=== PATIENT | male | born 1980 | race Caucasian/White ===

== ENCOUNTER 2019-12-05 10:14 | Emergency (ER) | payer BC, SELFPAY ==
--- NOTE | ~2019-12-05 | XR_ITS ---
EXAMINATION: XR chest 2V DATE: 12/05/2019 10:49 INDICATION: 8 days of cough TECHNIQUE: PA and lateral views of the chest were obtained. COMPARISON: Chest radiograph dated 10/02/2015 FINDINGS: The lungs remain clear with no focal airspace opacities, pulmonary edema, pleural effusion or pneumot horax. The cardiomediastinal silhouette is normal. Visualized bones and soft tissues are unremarkable . IMPRESSION: 1. Normal chest radiograph. Reviewed, dictated and finalized at location A. IMPRESSION: 1. Normal chest radiograph.
[2019-12-05 10:26] VITALS: BP 183/127; PULSE 91; RESP 20; TEMP 37.1; O2SAT 97
--- NOTE | 2019-12-05 10:26 | ED.GENADULT ---
HPI - General Adult General Chief complaint: Upper Respiratory Infection Stated complaint: Severe cough/cold over week Time Seen by Provider: 12/05/19 10:26 Source: patient Mode of arrival: ambulatory Limitations: no limitations History of Present Illness HPI narrative: 38-year-old male patient presents to the [facility] with complaints of a cough and little bit of shortness of breath. Patient states that they had an exposure at work about 2 weeks ago. Patient states that he got tested about 2 weeks ago but at that time had no symptoms and came up negative for COVID-19. Patient states he started having symptoms last Friday and states that he was tested on Friday, 2 days after symptoms. Patient states that he tested negative again. Patient states that he never ran a fever but continues to have a cough with bouts of shortness of breath when coughing at times. Denies any sore throat. Patient states he does have a little fullness to the bilateral ears. Denies any chest pain at this time. Denies any abdominal pain, nausea, vomiting or diarrhea. Patient is a smoker. Related Data Home Medications Medication Instructions Recorded Confirmed irbesartan 150 mg PO DAILY 12/05/19 12/05/19 testosterone cypionate 200 mg IM [id number] 12/05/19 12/05/19 venlafaxine 24 mg PO DAILY 12/05/19 12/05/19 Allergies Allergy/AdvReac Type Severity Reaction Status Date / Time No Known Allergies Allergy Unverified 10/02/15 09:28 Review of Systems Review of Systems: Narrative: CONSTITUTIONAL: Denies fever, chills, or sweats. EYES: Denies visual changes, redness, or discharge. ENT: Denies rhinorrhea, congestion, sore throat, or otalgia. CARDIOVASCULAR: Denies chest pain, palpitations, or edema. RESPIRATORY: Positive cough with dyspnea. GASTROINTESTINAL: Denies abdominal pain, nausea, vomiting, or diarrhea. GENITOURINARY: Denies dysuria or hematuria. SKIN: Denies rash or itching. MUSCULOSKELETAL: Denies back pain, joint pain, or myalgia. NEUROLOGIC: Denies headache, numbness, or weakness. PSYCHIATRIC: Denies anxiety or depression. [facility] Social History Social History Smoking status: Current every day smoker Alcohol intake: current Gender identity (if verbalized by the patient): Male Comments At the time of my signature I agree with nursing past medical history, surgical, social, and family history. There is no relevant family history pertinent to the presenting complaint. Exam Narrative: Exam Narrative: GENERAL: Well-appearing, well-nourished, and in no acute distress. HEAD: Normocephalic, atraumatic. EYES: PERRLA and EOMI. ENT: Nares clear, no rhinorrhea or epistaxis. Mucous membranes moist. Posterior pharynx with slight erythema and 1+ tonsil enlargement. Bilateral TMs are clear no erythema or foreign bodies in the canal. NECK: Supple. No lymphadenopathy CHEST: Clear to auscultation. Patient does have an active cough noted at the time of exam. Patient is able to talk in clear complete sentences when he is not coughing. HEART: Regular rate and rhythm. No murmur heard. Normal peripheral pulses. ABDOMEN: Soft, nontender, nondistended, normal active bowel sounds. EXTREMITIES: Normal range of motion. No edema. SKIN: Warm, dry, no rash. NEURO: No focal deficits. Alert and oriented x3. Course Vital Signs Vital signs: Vital signs reviewed. Medical Decision Making Differential Diagnosis Differential Diagnosis: Differential diagnosis: Allergic rhinitis, chronic sinusitis, tonsillitis, acute sinusitis, infectious mononucleosis, seasonal influenza, pertussis, diphtheria, meningococcal disease, viral syndrome, viral bronchitis, RSV. Discussed with patient that his strep was negative as well as his flu. Discussed with him that his x-ray is negative for any obvious pneumonia. Discussed with him that this could possibly be a bronchitis since he is a smoker he is more prone to bronchitis. D
== END 2019-12-05 11:25 | disposition home or self-care (01) ==
PROVIDERS: Emergency Provider Nurse Practitioner Family; PCP Emergency Medicine
DX: J06.9 Acute upper respiratory infection, unspecified (principal); J20.9 Acute bronchitis, unspecified; Z20.828 Contact with and (suspected) exposure to other viral communicable diseases; F17.200 Nicotine dependence, unspecified, uncomplicated
CPT/HCPCS: 71046; 87081; 87804; 87880; 99213; G0463

== ENCOUNTER 2020-01-21 06:58 | Outpatient (NON) | payer BC, SELFPAY ==
[2020-01-21 18:25] LABS: SARS-CoV-2 RNA PCR Negative
== END 2020-01-21 06:59 ==
PROVIDERS: PCP Emergency Medicine; Visit Provider Emergency Medicine
DX: Z20.828 Contact with and (suspected) exposure to other viral communicable diseases (principal)
CPT/HCPCS: 87635; C9803; U0003

== ENCOUNTER 2020-04-27 08:30 | Emergency (ER) | payer BC, SELFPAY ==
--- NOTE | ~2020-04-27 | XR_ITS ---
EXAMINATION: XR foot LT min 3V EXAM DATE: 04/27/2020 08:55 INDICATION: Pain mid Lt foot; no injury; hx of flat feet. TECHNIQUE: Left foot dorsoplantar, lateral and oblique projections obtained and reviewed. There is n o prior study for comparison. FINDINGS: Left metatarsal bones unremarkable. There is 1st interphalangeal joint osteoarthritis, c ould be primary or posttraumatic. Small distal tibial bone island. No evidence of metatarsal stress f racture. There are no acute fractures or dislocations identified. There is no subcutaneous gas. The soft tissue is unremarkable. There are no radiopaque foreign bodies. There are no bony erosions i dentified. 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 Reviewed, dictated and finalized at location A. [employer]PER
[2020-04-27 08:37] VITALS: BP 154/101; PULSE 94; RESP 16; TEMP 36.2; O2SAT 98
--- NOTE | 2020-04-27 09:11 | ED.LOWEXIN ---
HPI - Extremity Injury (Lower) General Chief Complaint: Extremity Injury, Lower Stated Complaint: L FOOT PAIN Time Seen by Provider: 04/27/20 09:00 Source: patient Mode of arrival: ambulatory Limitations: no limitations History of Present Illness HPI Narrative: Raymundo Whitmore is a 39 yo male with a PMH of HTN, depression, low testosterone, who comes to [facility] complaining of left-sided pain in the arch of foot that started last Friday. Pain with movement of toes; because of the trauma, no obvious swelling or redness, wearing slippers States increased pain when walking stairs is in both house and the job Related Data Home Medications Medication Instructions Recorded Confirmed testosterone cypionate 200 mg IM [id number] 12/05/19 04/27/20 venlafaxine 25 mg PO DAILY 12/05/19 04/27/20 icosapent ethyl [Vascepa] 1 g PO DAILY 04/27/20 04/27/20 irbesartan 300 mg PO DAILY 04/27/20 04/27/20 Allergies Allergy/AdvReac Type Severity Reaction Status Date / Time No Known Allergies Allergy Unverified 04/27/20 08:37 Review of Systems Review of Systems: Narrative: CONSTITUTIONAL: Denies fever, chills, sweats. EYES: Denies visual changes, redness, discharge. ENT: Denies rhinorrhea, congestion, sore throat, otalgia. CARDIOVASCULAR: Denies chest pain, palpitations, edema. RESPIRATORY: Denies dyspnea, wheezing, cough GASTROINTESTINAL: Denies abdominal pain, nausea, vomiting, diarrhea. GENITOURINARY: Denies dysuria, hematuria, abnormal discharge SKIN: Denies rash or itching. NEUROLOGIC: Denies numbness, or focal weakness. PSYCHIATRIC: Denies anxiety or depression. Left foot pain in the arch of foot PMFSH Past Medical History Medical History Depression Hypertension Low testosterone Family History Family History Other No acute medical problems Social History Social History Smoking status: Current every day smoker Alcohol intake: current Gender identity (if verbalized by the patient): Male Comments At time of signature, I agree with nursing past medical, surgical, social and family history. There is no relevant family history pertinent to the presenting complaint. Exam Narrative: Exam Narrative: GENERAL: This is a well-nourished, well-developed patient, in mild distress. HEAD: normocephalic, atraumatic. EYES: PERRL. Sclera clear/white. Vision is grossly intact. EARS: External ears normal, auditory canals clear and without drainage, TMs normal without perforation. Hearing grossly intact. NOSE: External nose normal without nasal discharge, nares without redness, no rhinorrhea. THROAT: Mucous membranes moist, posterior pharynx NECK: Neck supple, non-tender CARDIOVASCULAR: Regular rate and rhythm without murmurs, gallops, or rubs. RESPIRATORY: Clear to auscultation. Breath sounds equal bilaterally. No wheezes, rales, or rhonchi. GASTROINTESTINAL: Abdomen soft, non-tender, SKIN: warm, intact with no suspicious lesions or rash, good texture and turgor. NEURO: awake, alert, and oriented to person, place and time. There were no obvious focal neurologic abnormalities. Steady gait EXTREMITIES: Normal range of motion. Pain in arch of left foot painful to move toes are to flex foot; no obvious redness or swelling; with pain and pressure on plantar tendon BACK: Nontender without deformity Course Course Emergency Course: Patient comes with left foot pain X-ray foot shows only first interphalangeal osteoarthritis but no fracture or subluxation Started on Medrol Dosepak and given stretching exercises, wear supportive shoes-unable to give NSAID as patient's blood pressure is elevated even on blood pressure medication Follow-up with insurance rater if not improved Vital Signs Vital signs: Vital Signs Temperature 97.1 F L 04/27/20 08:37 Pulse Rate 94 04/27/20 08:37
== END 2020-04-27 09:42 | disposition home or self-care (01) ==
PROVIDERS: Emergency Provider Nurse Practitioner; PCP Emergency Medicine
DX: M72.2 Plantar fascial fibromatosis (principal); F17.200 Nicotine dependence, unspecified, uncomplicated; F32.9 Major depressive disorder, single episode, unspecified; I10 Essential (primary) hypertension
CPT/HCPCS: 73630; 99213; G0463

== ENCOUNTER 2020-05-15 08:03 | Emergency (ER) | payer BC, SELFPAY ==
[2020-05-15 08:08] VITALS: BP 160/111; PULSE 96; RESP 16; TEMP 36.6; O2SAT 99
--- NOTE | 2020-05-15 08:08 | ED.LOWEXIN ---
HPI - Extremity Injury (Lower) General Chief Complaint: Extremity Injury, Lower Stated Complaint: lt foot pain Time Seen by Provider: 05/15/20 08:08 Source: patient and RN notes reviewed Mode of arrival: ambulatory Limitations: no limitations History of Present Illness HPI Narrative: 39 yo male presents to the [facility] with continued left foot pain. Was seen 04/27 for the same. No new trauma. States that he was walking around barefoot yesterday. After couple hours his foot started hurting. Patient states that when he was seen, was prescribed steroid, pain became better and he did not think he needed follow-up. Reports that after he started feeling better he stopped doing the exercises. Has purchased insoles from the store. Reports insoles did help a little bit. Reports that he is trying to get an appointment with both primary and with podiatry. Related Data Home Medications Medication Instructions Recorded Confirmed irbesartan 300 mg PO DAILY 04/27/20 05/15/20 icosapent ethyl [Vascepa] 1 g PO DAILY 05/15/20 05/15/20 testosterone cypionate 200 mg IM [id number] 05/15/20 05/15/20 venlafaxine 25 mg PO DAILY 05/15/20 05/15/20 Allergies Allergy/AdvReac Type Severity Reaction Status Date / Time No Known Allergies Allergy Unverified 05/15/20 08:13 Review of Systems Review of Systems: Narrative: CONSTITUTIONAL: Denies fever, chills, or sweats. EYES: Denies visual changes, redness, or discharge. CARDIOVASCULAR: Denies chest pain, palpitations, or edema. RESPIRATORY: Denies cough or dyspnea. GASTROINTESTINAL: Denies abdominal pain, nausea, vomiting, or diarrhea. GENITOURINARY: Denies dysuria or hematuria. SKIN: Denies rash or itching. MUSCULOSKELETAL: Denies back pain, joint pain, or myalgia. Arch and top of left foot, worse in the morning. NEUROLOGIC: Denies headache, numbness, or weakness. PSYCHIATRIC: Denies anxiety or depression. All other systems reviewed are negative, except as documented in HPI. [facility] Past Medical History Medical History Depression Hypertension Low testosterone Family History Family History Other No acute medical problems Social History Social History Smoking status: Current every day smoker Alcohol intake: current Gender identity (if verbalized by the patient): Male Comments At the time of my signature, I reviewed and agree with the nursing past medical, surgical, social, and family history. There is no relevant family history pertinent to the patient complaint. Exam Narrative: Exam Narrative: GENERAL: This is a well-nourished, well-developed patient, in no apparent distress. HEAD: normocephalic, atraumatic. EYES: PERRL. Sclera clear/white. Vision is grossly intact. NECK: Neck supple, non-tender without lymphadenopathy, masses or thyromegaly. CARDIOVASCULAR: Regular rate and rhythm without murmurs, gallops, or rubs. RESPIRATORY: Clear to auscultation. Breath sounds equal bilaterally. No wheezes, rales, or rhonchi. GASTROINTESTINAL: Abdomen soft, non-tender, nondistended. SKIN: warm, intact with no suspicious lesions or rash, good texture and turgor. No bruising, redness, inflammation and painful area left foot NEURO: awake, alert, and oriented to person, place and time. There were no obvious focal neurologic abnormalities. EXTREMITIES: No clubbing, cyanosis, or edema. No joint tenderness, effusion, or edema noted. No calf tenderness. Tenderness left arch, medial, dorsal. Area showed no signs of infection or trauma. No redness, swelling or bruising noted. Positive pedal pulse. Sensation intact in all 5 toes. Able to wiggle all 5 toes without issue. BACK: Nontender without deformity or crepitance. No flank tenderness. Extrem: Ankle/foot/toe images: 1. Tender 2. Tender when standing. Flat-footed. Course Vital Signs Vital sign
== END 2020-05-15 08:27 | disposition home or self-care (01) ==
PROVIDERS: Emergency Provider Nurse Practitioner; PCP Emergency Medicine
DX: M72.2 Plantar fascial fibromatosis (principal); F32.9 Major depressive disorder, single episode, unspecified; F17.200 Nicotine dependence, unspecified, uncomplicated; I10 Essential (primary) hypertension; E29.1 Testicular hypofunction
CPT/HCPCS: 99213; G0463

== ENCOUNTER 2022-04-02 15:06 | Emergency (ER) | payer BC, SELFPAY ==
[2022-04-02 15:54] VITALS: BP 167/108; PULSE 127; RESP 16; TEMP 37.8; O2SAT 99
--- NOTE | 2022-04-02 16:14 | ED.URI ---
HPI - URI/Sore Throat General Chief Complaint: Upper Respiratory Infection Stated Complaint: body ache; headache; chest congestion Time Seen by Provider: 04/02/22 15:54 Source: patient Mode of arrival: ambulatory Limitations: no limitations History of Present Illness HPI Narrative: Juan Francisco foss is a 41-year-old male patient presenting to clinic today with complaints of headache, chest congestion, and body aches x1 day. He reports that his symptoms began yesterday. He denies any known fever. MD elicited complaint: cough and nasal congestion Related Data Home Medications Medication Instructions Recorded Confirmed irbesartan 300 mg tablet 300 mg PO DAILY 04/27/20 04/02/22 testosterone cypionate 200 mg/mL 200 mg IM [id number] 05/15/20 04/02/22 intramuscular oil venlafaxine 25 mg tablet 25 mg PO DAILY 05/15/20 04/02/22 fenofibrate 160 mg tablet 160 mg PO DAILY 04/02/22 04/02/22 rosuvastatin 20 mg tablet 20 mg PO DAILY 04/02/22 04/02/22 Allergies Allergy/AdvReac Type Severity Reaction Status Date / Time No Known Allergies Allergy Unverified 04/02/22 16:06 Review of Systems Review of Systems: Pertinent positives per HPI. Patient denies any fever, chills, rash, headache, visual changes, dizziness, cough, shortness of breath, chest pain, palpitations, nausea, vomiting, diarrhea, constipation, abdominal pain, or any urinary issues. PMFSH Past Medical History Medical History Depression Hypertension Low testosterone Family History Family History Other No acute medical problems Social History Social History Smoking status: Current every day smoker Alcohol intake: current Gender identity (if verbalized by the patient): Male Comments At the time of my signature, I reviewed and agree with the nursing past medical, surgical, social, and family history. There is no relevant family history pertinent to the patient complaint. Exam Narrative: General: Well-developed, well nourished, in no apparent distress Head: Normocephalic, atraumatic Eyes: Pupils equally round and reactive to light bilaterally, EOM intact, sclera and conjunctive clear, no discharge, lids normal Ears: TMs intact and clear, ear canals clear, no drainage, grossly hearing normal. Nose: Nares patent, clear nasal discharge, no inflammation, no sinus tenderness. Mouth: Oral pharynx without lesions or masses, good dentition, MMM. Postnasal drip Neck: Supple, trachea midline, no enlargement of anterior or posterior cervical nodes, no thyroid masses or goiter palpable. Cardio: Regular rate and rhythm, s1 and s2 normal, no murmur appreciated. Resp: Clear to auscultation bilaterally, no rhonchi, rales, wheezing or rubs Course Course Emergency Course: Portions of this record may have been created with voice recognition software. Level of Care: Express Care Visit Vital Signs Vital signs: Vital Signs Temperature 37.8 C H 04/02/22 15:54 Pulse Rate 127 H 04/02/22 15:54 Respiratory Rate 16 04/02/22 15:54 Blood Pressure 167/108 H 04/02/22 15:54 Pulse Oximetry 99 04/02/22 15:54 Temperature 37.8 C H 04/02/22 15:54 Pulse Rate 127 H 04/02/22 15:54 Respiratory Rate 16 04/02/22 15:54 Blood Pressure 167/108 H 04/02/22 15:54 Pulse Oximetry 99 04/02/22 15:54 Vital signs reviewed MDM - URI/Sore Throat MDM Narrative Medical decision making narrative: At the time of visit patient is resting comfortably on the exam table. Influenza testing was positive for influenza A. Supportive measures were discussed with the patient he voiced understanding discharge instructions and agrees to treatment plan. Differential Diagnosis Differential diagnosis: Likely upper respiratory infection, otitis media, sinusitis, viral infection, bronchitis, influenza, ph
== END 2022-04-02 16:30 | disposition home or self-care (01) ==
PROVIDERS: Emergency Provider Nurse Practitioner Family; PCP Emergency Medicine
DX: J10.1 Influenza due to other identified influenza virus with other respiratory manifestations (principal); F17.290 Nicotine dependence, other tobacco product, uncomplicated; I10 Essential (primary) hypertension; F32.A Depression, unspecified
CPT/HCPCS: 87804; 99213; G0463